=== PATIENT | female | born 1990 | race Caucasian/White ===

== ENCOUNTER 2016-12-15 19:49 | Observation (INO) | payer OTHER ==
[2016-12-15] MEDS ORDERED: Morphine 4 MG/ML VIAL IV STA (20:39)
[2016-12-15] MEDS ORDERED: Sodium Chloride 0.9% 1,000 ML IV STA (20:39)
--- NOTE | 2016-12-15 20:56 | ED PDOC ---
HPI: General Adult Time Seen by Provider: 12/15/16 20:27 Chief Complaint (Nursing): Fever Chief Complaint (Provider): Headache, fever History Per: Patient History/Exam Limitations: no limitations Onset/Duration Of Symptoms: Days (4) Have you had recent travel within the past 21 days to any of the following countries: [place], [place], [place] or [place]?: No Current Symptoms Are (Timing): Still Present Additional History Per: Patient Additional Complaint(s): The patient is a 26yo female, no pertinent past medical history, presents to the ED for evaluation of right sided headache, photophobia, fever, chills, neck stiffness for the past 5 days. Patient also reports associated nausea and vomiting. She reports taking Advil and Tylenol at noon today with no relief. She denies any sore throat, ear pain, cough, abdominal pain, dysuria, hematuria. Patient offers no additional medical complaints. Past Medical History Reviewed: Historical Data, Nursing Documentation, Vital Signs Vital Signs: Last Vital Signs Temp 98.5 F 12/18/16 08:52 Pulse 66 12/18/16 08:52 Resp 20 12/18/16 08:52 BP 117/78 12/18/16 08:52 Pulse Ox 98 12/18/16 08:52 - Medical History PMH: No Chronic Diseases - Surgical History Surgical History: No Surg Hx - Family History Family History: States: No Known Family Hx, Unknown Family Hx - Immunization History Hx Tetanus Toxoid Vaccination: No - Home Medications Home Medications: Ambulatory Orders Medication Instructions Recorded No Known Home Med 12/16/16 - Allergies Allergies/Adverse Reactions: Allergies Allergy/AdvReac Type Severity Reaction Status Date / Time No Known Allergies Allergy Verified 12/15/16 20:08 Review of Systems ROS Statement: Except As Marked, All Systems Reviewed And Found Negative Constitutional: Positive for: Fever, Chills Eyes: Positive for: Vision Change (photophobia) ENT: Negative for: Ear Pain, Throat Pain Respiratory: Negative for: Cough Gastrointestinal: Positive for: Nausea, Vomiting. Negative for: Abdominal Pain Musculoskeletal: Positive for: Neck Pain (neck stiffness) Neurological: Positive for: Headache Physical Exam - Reviewed Nursing Documentation Reviewed: Yes Vital Signs Reviewed: Yes - Physical Exam Appears: Positive for: Uncomfortable (moderate painful distressw) Head Exam: Positive for: ATRAUMATIC, NORMAL INSPECTION, NORMOCEPHALIC Eye Exam: Positive for: Normal appearance, EOMI, PERRL Cardiovascular/Chest: Positive for: Regular Rate, Rhythm Respiratory: Positive for: Normal Breath Sounds. Negative for: Respiratory Distress Gastrointestinal/Abdominal: Positive for: Normal Exam, Soft. Negative for: Tenderness Back: Positive for: Normal Inspection Extremity: Positive for: Normal ROM. Negative for: Deformity, Swelling Neurologic/Psych: Positive for: Alert, Oriented. Negative for: Motor/Sensory Deficits - Laboratory Results Result Diagrams: 12/18/16 06:15 12/18/16 06:15 - ECG O2 Sat by Pulse Oximetry: 98 (RA) Pulse Ox Interpretation: Normal Medical Decision Making Medical Decision Making: Time: 2026 Impression: rule out meningitis Plan: -- Patient consents to a lumbar puncture -- CT Head -- Labs -- IV Rocephin -- IV Vancomycin -- IV Acyclovir -- IV Fluids -- Morphine 2mg IV Reassess Time: 2206 CT Head FINDINGS: Limitations: Streak artifact - mild. Brain: No intracranial hemorrhage. No mass. No definite edema. Ventricles: No hydrocephalus. Bones/joints: No acute fracture. Mild degenerative changes of RIGHT temporomandibular joint. Soft tissues: Unremarkable. Sinuses: Scattered minimal mucosal thickening. Mastoid air cells: No mastoid effusion. Orbits: Unremarkable as visualized. IMPRESSION: 1. No acute intracranial abnormality. 2. Incidental/non-acute findings are described above. Scribe Attestation: Documented by Ghazala Landon acting as a scribe for Inga Menon MD. Provider Attestation: All medical record entries made by the Scribe were at my direction and personally dictated by me. I have reviewed the chart and agree that the record accurately reflects my personal performance of the history, physical exam, medical decision making, and the department course for this patient. I have also personally directed, reviewed, and agree with the discharge instructions and disposition. Procedures - Time-Out Type of Procedure: Lumbar Puncture Correct Patient (with visual ID + MR# on ID Band): Yes Correct Procedure: Yes Correct Site Marked: Yes Medication Reconciliation / Bloodwork / Allergies Checked: Yes Physician Name: Inga Menon MD - Additional Procedures Additional Procedures: lumbar puncture Progress: Performed by the emergency provider Time: 2219 Consent: Informed consent, after discussion of the risks, benefits, and alternatives to the procedure, was obtained Timeout: A timeout to verify the correct patient, procedure, and site was performed immediately prior to the procedure. Indication: Rule out meningitis Patient's position: Sitting. Anesthesia: Local anesthesia: Lidocaine with 1% Epi. See MAR for details. Preparation: Patient was prepped and draped in the usual sterile fashion and sterile technique was used. The landmarks were identified. Needle size: A 22 gauge spinal needle. Lumbar entry space: L4-L5 innerspace level. Fluid appearance: Clear. Post-procedure: Site cleansed and adhesive bandage applied. The patient tolerated the procedure well with no immediate complications. CSF was sent to lab for analysis. Disposition - Clinical Impression Clinical Impression: Fever, Urinary tract infection, Headache - Patient ED Disposition Is Patient to be Admitted: Transfer of Care - Disposition Disposition Time: 00:00 Condition: STABLE Patient Signed Over To: Javier South
[2016-12-15] MEDS ORDERED: cefTRIAXone 2 GM in Sodium Chloride 0.9% 100 ML IVPB STA (20:59)
[2016-12-15 21:20] LABS: BASO # 0.1 K/uL (0.0-0.2); BASO % 0.3 % (0.0-2.0); EOS % 0.2 % (0.0-4.0); HEMOGLOBIN 12.2 g/dL (12.0-16.0); LYMPH # 0.9 K/uL (1.0-4.3); LYMPH % 5.1 % (20.0-40.0); MEAN CELL VOLUME 85.1 fl (81.0-99.0); MEAN CORPUSCULAR HEMOGLOBIN 27.7 pg (27.0-31.0); MEAN CORPUSCULAR HGB CONC 32.5 g/dL (33.0-37.0); MEAN PLATELET VOLUME 7.6 fl (7.2-11.7); MONO # 2.4 K/uL (0.0-0.8); MONO % 13.6 % (0.0-10.0); NEUT % 80.8 % (50.0-75.0); PLATELET COUNT 260 K/uL (130-400); RBC 4.42 Mil/uL (3.80-5.20); RED CELL DISTRIBUTION WIDTH 13.3 % (11.5-14.5); WHITE BLOOD COUNT 17.4 K/uL (4.8-10.8)
[2016-12-15 21:28] LABS: INR 1.8 (0.9-1.2); PROTHROMBIN TIME 20.4 Seconds (9.8-13.1)
[2016-12-15] MEDS ORDERED: cefTRIAXone (Rocephin) 1 gm Inj ONE (21:33)
[2016-12-15] MEDS ORDERED: Vancomycin 1 g Inj ONE (21:34)
[2016-12-15 21:37] LABS: ALB/GLOB RATIO 1.2 (1.0-2.1); ALBUMIN 3.8 g/dL (3.5-5.0); ALT/SGPT 39 U/L (9-52); AST/SGOT 28 U/L (14-36); BLOOD UREA NITROGEN 7 mg/dl (7-17); CALCIUM 8.6 mg/dL (8.4-10.2); GFR AFRICAN-AMERICAN > 60; GFR NON-AFRICAN AMERICAN > 60
[2016-12-15 21:39] LABS: VENOUS BLOOD GAS BASE EXCESS -0.2 mmol/L (0.0-2.0); VENOUS BLOOD GAS PCO2 41 mmHg (40-60); VENOUS BLOOD GAS PO2 20 mm/Hg (30-55); VENOUS BLOOD PH 7.39 (7.32-7.43)
--- NOTE | 2016-12-15 22:06 | CT ---
EXAM: CT Head Without Intravenous Contrast CLINICAL HISTORY: 26 years old, female; Pain and signs and symptoms; Fever and other: Weakness; Headache; Other: Right sided; Additional info: R sided BENITES TECHNIQUE: Axial computed tomography images of the head/brain without intravenous contrast. This CT exam was performed using one or more of the following dose reduction techniques: automated exposure control, adjustment of the mA and/or kV according to patient size, and/or use of iterative reconstruction technique. Coronal and sagittal reformatted images were created and reviewed. COMPARISON: No relevant prior studies available. FINDINGS: Limitations: Streak artifact - mild. Brain: No intracranial hemorrhage. No mass. No definite edema. Ventricles: No hydrocephalus. Bones/joints: No acute fracture. Mild degenerative changes of RIGHT temporomandibular joint. Soft tissues: Unremarkable. Sinuses: Scattered minimal mucosal thickening. Mastoid air cells: No mastoid effusion. Orbits: Unremarkable as visualized. IMPRESSION: 1. No acute intracranial abnormality. 2. Incidental/non-acute findings are described above.
[2016-12-15] MEDS ORDERED: Lidocaine 1% Inj (20ml) ONE (22:09)
[2016-12-15 22:10] LABS: SQUAMOUS EPITHIAL 1 /hpf (0-5); URINE BACTERIA MANY (<OCC); URINE BILIRUBIN NEGATIVE (NEGATIVE); URINE BLOOD MODERATE (NEGATIVE); URINE CLARITY CLEAR (Clear); URINE COLOR STRAW (YELLOW); URINE GLUCOSE (UA) NEG (Normal); URINE LEUKOCYTE ESTERASE MOD Leu/uL (Negative); URINE NITRATE POSITIVE (NEGATIVE); URINE PROTEIN 30 mg/dL (NEGATIVE); URINE UROBILINOGEN 0.2-1.0 mg/dL (0.2-1.0)
[2016-12-15 22:37] LABS: LYMPHOCYTE 6 % (20-50); MONOCYTE 14 % (0-10); NEUTROPHIL 80 % (42-75); PLATELET ESTIMATE NORMAL (NORMAL); TOTAL CELLS COUNTED 100
[2016-12-16 00:26] LABS: CSF APPEARANCE CLEAR/COLORLESS (CLEAR); CSF VOLUME 2 mL (0-1); FLUID TYPE SPINAL FLUID
--- NOTE | 2016-12-16 00:31 | ED PDOC ---
- Laboratory Results Result Diagrams: 12/17/16 04:20 12/17/16 04:20 - ECG O2 Sat by Pulse Oximetry: 99 Medical Decision Making Medical Decision Makin Patient signed out to me from Dr. Menon pending CT, results of spinal tap, and admission. 0100 CT FINDINGS Limitations: Streak artifact - mild. Brain: No intracranial hemorrhage. No mass. No definite edema. Ventricles: No hydrocephalus. Bones/joints: No acute fracture. Mild degenerative changes of RIGHT temporomandibular joint. Soft tissues: Unremarkable. Sinuses: Scattered minimal mucosal thickening. Mastoid air cells: No mastoid effusion. Orbits: Unremarkable as visualized. IMPRESSION: 1. No acute intracranial abnormality. 2. Incidental/non-acute findings are described above. 0246 Lumbar puncture: negative for wbc, clear and colorless Will admit patient because of headache and fever. Spoke to patient, gave preliminary results. noted uti, pt has already gotten Rocephin. Patient will be admitted to medicine - paged Dr. Douglass [phone] Douglass who accepted patient for admission. Scribe Attestation: Documented by Christiane Jones acting as a scribe for Javier South MD. Scribe Attestation: All medical record entries made by the Scribe were at my direction and personally dictated by me. I have reviewed the chart and agree that the record accurately reflects my personal performance of the history, physical exam, medical decision making, and the department course for this patient. I have also personally directed, reviewed, and agree with the discharge instructions and disposition. Disposition Discussed With : Constantine Douglass Doctor Will See Patient In The: Hospital - Clinical Impression Clinical Impression: Fever, Urinary tract infection, Headache - POA Present On Arrival: None - Disposition Disposition: Hospitalized as Observation Patient (OBS MED SURG) Disposition Time: 02:00 Condition: STABLE
[2016-12-16 00:49] LABS: CSF MONO/MACROPHAGE 0 % (0-0)
[2016-12-16] MEDS ORDERED: cefTRIAXone 2 GM in Sodium Chloride 0.9% 100 ML IVPB ONE (09:00)
--- NOTE | 2016-12-16 11:41 | CP.PCM.HP ---
<ManuelianMichael - Last Filed: 12/16/16 12:57> History of Present Illness - History of Present Illness History of Present Illness: 26 y/o female with an unremarkable PMHx presented to [facility] ED for evaluation of severe headache. Pt reports headache started about 4 days ago, started gradually without inciting event and worsening. Pain is 8/10. Headache is associated with fever (Tmax of 103.0 at home), nausea, neck stiffness, photophobia, and several episodes of NBNB emesis. Very mildly alleviated for a short period of time by Tylenol or Advil. 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 Pt also reports going hiking in [facility] in the past week but denies any insect bites. 1st episode of such pain, denies international travel, sick contacts. 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 Meds: none ALL: NKDA PSurghx: [place] teeth extraction OBHx: G0 LMP: November, reg, moderate bleeds VACC: up to date as per pt SocialHx: lives in [place], denies recent unprotected sexual activity, denies Tobacco, ETOH, drug abuse FamilyHx: noncontributory PE: Gen: AAOx3, NAD, mild discomfort when exposed to light, HEENT: EMOI, PERRLA, no cervical adenopathy, no nuchal rigidity, Brudzinski symphyseal/neck signs neg respectively, throat clear CVS: RRR, S1S2+, No MRG, No JVD LUNGS: CTA B/L, A/P, no WRR ABD: Soft, +BS, NT/ND, No organmegaly EXT: Kernig sign neg, pulses 2+ throughout, no edema, FROM NEURO: CN II-XII intact, reflexes normal throughout Case discussed with Dr. Douglass, pt admitted to med/surg Present on Admission - Present on Admission Any Indicators Present on Admission: No Past Patient History - Past Social History Smoking Status: Unknown If Ever Smoked - PSYCHIATRIC Hx Substance Use: No Meds Allergies/Adverse Reactions: Allergies Allergy/AdvReac Type Severity Reaction Status Date / Time No Known Allergies Allergy Verified 12/15/16 20:08 Results - Vital Signs Recent Vital Signs: Last Vital Signs Temp 100.0 F H 12/16/16 09:00 Pulse 80 12/16/16 09:00 Resp 18 12/16/16 09:00 BP 104/65 12/16/16 09:00 Pulse Ox 100 12/16/16 09:00 - Labs Result Diagrams: 12/15/16 21:00 12/15/16 21:00 Assessment & Plan (1) Meningitis Assessment and Plan: likely viral in origin given CSF result f/u viral CSF labs pain management f/u CBC/BMP in AM Neurology consult appreciated Infectious disease consult appreciated Acyclovir IV 600 Q8 Rocephin 2gm QD Vancomycin 1gm QD Status: Acute (2) Urinary tract infection Assessment and Plan: currently on IV abx Status: Acute (3) DVT prophylaxis Assessment and Plan: low risk ambulation SCDs prn Status: Acute <Constantine Douglass - Last Filed: 12/16/16 15:09> Results - Vital Signs Recent Vital Signs: Last Vital Signs Temp 102.9 F H 12/16/16 14:23 Pulse 80 12/16/16 09:00 Resp 18 12/16/16 09:00 BP 104/65 12/16/16 09:00 Pulse Ox 100 12/16/16 09:00 - Labs Result Diagrams: 12/15/16 21:00 12/15/16 21:00 Assessment & Plan - Assessment and Plan (Free Text) Assessment: Patient was personally seen and examined by me in rounds with residents. Available labs and diagnostic data reviewed. Case, Patient's condition and management plan discussed with residents in rounds. Agree with resident's documentation. Plan: As ordered. Constantine Douglass MD
--- NOTE | 2016-12-16 13:55 | CP.PCM.CON ---
History of Present Illness - History of Present Illness History of Present Illness: fever and headache after trip to [place] 26 y/o female with an unremarkable PMHx presented to [facility] ED for evaluation of severe headache. Pt reports headache started about 4 days ago, started gradually without inciting event and worsening. Pain is 8/10. Headache is associated with fever (Tmax of 103.0 at home), nausea, neck stiffness, photophobia, and several episodes of NBNB emesis. Very mildly alleviated for a short period of time by Tylenol or Advil. 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 Pt also reports going hiking in [facility] in the past week but denies any insect bites. 1st episode of such pain, denies international travel, sick contacts. 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 Meds: none ALL: NKDA PSurghx: [place] teeth extraction OBHx: G0 LMP: November,, moderate bleeds VACC: up to date as per pt SocialHx: lives in [place], denies recent unprotected sexual activity, denies Tobacco, ETOH, drug abuse FamilyHx: noncontributory Review of Systems - Review of Systems All systems: reviewed and no additional remarkable complaints except - Constitutional Constitutional: As Per HPI - EENT Eyes: absent: As Per HPI, Blind Spots, Blurred Vision, Change in Vision, Decreased Night Vision, Diplopia, Discharge, Dry Eye, Exophthalmos, Floaters, Irritation, Itchy Eyes, Loss of Peripheral Vision, Pain, Photophobia, Requires Corrective Lenses, Sees Flashes, Spots in Vision, Tunnel Vision, Other Visual Disturbances, Loss of Vision, Other Ears: absent: As Per HPI, Decreased Hearing, Ear Discharge, Ear Pain, Tinnitus, Abnormal Hearing, Disequilibrium, Dizziness, Other Nose/Mouth/Throat: absent: As Per HPI, Epistaxis, Nasal Congestion, Nasal Discharge, Nasal Obstruction, Nasal Trauma, Nose Pain, Post Nasal Drip, Sinus Pain, Sinus Pressure, Bleeding Gums, Change in Voice, Dental Pain, Dry Mouth, Dysphagia, Halitosis, Hoarsness, Lip Swelling, Mouth Lesions, Mouth Pain, Odynophagia, Sore Throat, Throat Swelling, Tongue Swelling, Facial Pain, Neck Pain, Neck Mass, Other - Breasts Breasts: absent: As Per HPI, Change in Shape, Mass, Pain, Nipple Discharge, Nipple Inversion, Skin Changes, Swelling, Other - Cardiovascular Cardiovascular: absent: As Per HPI, Acrocyanosis, Chest Pain, Chest Pain at Rest , Chest Pain with Activity, Claudication, Diaphoresis, Dyspnea, Dyspnea on Exertion, Edema, Irregular Heart Rhythm, Pain Radiating to Arm/Neck/Jaw, Leg Edema, Leg Ulcers, Lightheadedness, Orthopnea, Palpitations, Paroxysmal Nocturnal Dyspnea, Pedal Edema, Radiating Pain, Rapid Heart Rate, Slow Heart Rate, Syncope, Other - Respiratory Respiratory: absent: As Per HPI, Cough, Dyspnea, Hemoptysis, Dyspnea on Exertion , Wheezing, Snoring, Stridor, Pain on Inspiration, Chest Congestion, Excessive Mucous Production, Change in Mucous Color, Pain with Coughing, Other - Gastrointestinal Gastrointestinal: absent: As Per HPI, Abdominal Pain, Belching, Bloating, Change in Bowel Habits, Change in Stool Character, Coffee Ground Emesis, Constipation, Cramping, Diarrhea, Dyspepsia, Dysphagia, Early Satiety, Excessive Flatus, Fecal Incontinence, Heartburn, Hematemesis, Hematochezia, Loose Stools, Melena, Nausea, Odynophagia, Temesmus, Vomiting, Other - Genitourinary Genitourinary: absent: As Per HPI, Change in Urinary Stream, Difficulty Urinating, Dysuria, Flank Pain, Hematuria, Pyuria, Nocturia, Urinary Incontinence, Urinary Frequency, Urinary Hesitance, Urinary Urgency, Voiding Freq/Small Amts, Freq UTI, Hx Renal/Bladder Calculi, Hx /Renal Surgery, Bladder Distension, Other - Reproductive: Female Reproductive:Female: absent: As Per HPI, Amenorrhea, Amenorrhea/ Control, Currently Menstual, Cycle <21 Days, Cycle >35 Days, Cycle Variable, Menses 1-7 Days, Menses >/= 8 Days, Menses Variable, Cycle > 4 Weeks Between, No Menses for 6 Months, Heavy Menses, Light Menses, Normal Menses, Spotting Between Cycles , S/P Hysterectomy, Menopausal, Post Menopausal, Premenarche, Abnormal Vaginal Bleeding, Dysmenorrhea, Dyspareunia, Genital Lesions, Genital Pruritis, Pelvic Pain, Prolapse Symptoms, Sexual Dysfunction, Vaginal Discharge, Vaginal Dryness , Vaginal Odor, Vaginal Pruritis, Other - Menstruation Menstruation: absent: As Per HPI, Amenorrhea, Amenorrhea/ Control, Currently Menstual, Cycle <21 Days, Cycle >35 Days, Cycle Variable, Menses 1-7 Days, Menses >/= 8 Days, Menses Variable, Cycle > 4 Weeks Between, No Menses for 6 Months, Heavy Menses, Light Menses, Normal Menses, Spotting Between Cycles , S/P Hysterectomy, Menopausal, Post Menopausal, Premenarche, Abnormal Vaginal Bleeding, Dysmenorrhea, Other - Musculoskeletal Musculoskeletal: absent: As Per HPI, Abnormal Gait, Arthralgias, Atrophy, Back Pain, Deformity, Joint Swelling, Limited Range of Motion, Loss of Height, Muscle Cramps, Muscle Weakness, Myalgias, Neck Pain, Numbness, Radiating Pain into Limb, Stiffness, Tingling, Other - Integumentary Integumentary: absent: As Per HPI, Acne, Alopecia, Bleeding Lesions, Change in Hair, Change in Nails, Change in Pigmentation, Changing Lesions, Dry Skin, Erythema, Furuncle, Hirsutism, Lesions, New Lesions, Non-Healing Lesions, Photosensitivity, Pruritus, Rash, Skin Pain, Skin Ulcer, Sores, Striae, Swelling , Unusual Bruising, Wounds, Jaundice, Other - Neurological Neurological: As Per HPI - Psychiatric Psychiatric: absent: As Per HPI, Abnormal Sleep Pattern, Anhedonia, Anxiety, Auditory Hallucinations, Behavioral Changes, Change in Appetite, Change in Libido, Confusion, Depression, Difficulty Concentrating, Hallucinations, Homicidal Ideation, Hopelessness, Irritability, Memory Loss, Mood Swings, Panic Attacks, Paranoia, Suicidal Ideation, Visual Hallucinations, Tactile Hallucinations, Other - Endocrine Endocrine: absent: As Per HPI, Change in Body Appearance, Change in Libido, Cold Intolorance, Deepening of Voice, Excessive Sweating, Fatigue, Flushing, Heat Intolorance, Increase in Ring/Shoe/Hat Size, Palpitations, Polydipsia, Polyphagia, Polyuria, Other - Hematologic/Lymphatic Hematologic: absent: As Per HPI, Easy Bleeding, Easy Bruising, Lymphadenopathy, Other Past Patient History - Past Social History Smoking Status: Unknown If Ever Smoked - PSYCHIATRIC Hx Substance Use: No Meds Allergies/Adverse Reactions: Allergies Allergy/AdvReac Type Severity Reaction Status Date / Time No Known Allergies Allergy Verified 12/15/16 20:08 - Medications Medications: Current Medications Acetaminophen (Tylenol 325mg Tab) 650 mg PO Q6 PRN PRN Reason: Pain, Mild (1-3) Acetaminophen (Tylenol 325mg Tab) 650 mg PO Q6 PRN PRN Reason: Fever >100.4 F Famotidine (Pepcid) 20 mg PO BID [facility] Ceftriaxone Sodium 2 gm/ (Sodium Chloride) 100 mls @ 100 mls/hr IVPB DAILY [facility] Acyclovir 600 mg/ Sodium (Chloride) 100 mls @ 100 mls/hr IVPB Q8 [facility] Vancomycin HCl 1 gm/ Sodium (Chloride) 250 mls @ 166.667 mls/hr IVPB DAILY [facility] Ketorolac Tromethamine (Toradol) 30 mg IVP Q6 PRN PRN Reason: Pain, severe (8-10) Ondansetron HCl (Zofran Inj) 4 mg IVP Q6 PRN PRN Reason: Nausea/Vomiting Physical Exam - Constitutional Appears: Toxic - Head Exam Head Exam: NORMOCEPHALIC - Eye Exam Eye Exam: PERRL - ENT Exam ENT Exam: Mucous Membranes Dry, Normal External Ear Exam - Neck Exam Neck exam: Negative for: Lymphadenopathy - Respiratory Exam Respiratory Exam: Clear to Auscultation Bilateral - Cardiovascular Exam Cardiovascular Exam: REGULAR RHYTHM - GI/Abdominal Exam GI & Abdominal Exam: Diminished Bowel Sounds, Soft. absent: Tenderness - Rectal Exam Rectal Exam: Deferred - Exam Exam: NORMAL INSPECTION - Extremities Exam Extremities exam: Negative for: pedal edema - Back Exam Back exam: absent: CVA tenderness (L), CVA tenderness (R) - Neurological Exam Neurological exam: Alert, CN II-XII Intact, Oriented x3, Reflexes Normal - Psychiatric Exam Psychiatric exam: Normal Mood Results - Vital Signs Recent Vital Signs: Last Vital Signs Temp 100.0 F H 12/16/16 09:00 Pulse 80 12/16/16 09:00 Resp 18 12/16/16 09:00 BP 104/65 12/16/16 09:00 Pulse Ox 100 12/16/16 09:00 - Labs Result Diagrams: 12/15/16 21:00 12/15/16 21:00 Assessment & Plan (1) Meningitis Status: Acute - Assessment and Plan (Free Text) Assessment: R/O VIRAL, RICKETTSIAL, BACTERIAL
[2016-12-16] MEDS: Sodium Chloride 0.9% 1,000 ML IV SCH (17:00)
[2016-12-16] MEDS ORDERED: cefTRIAXone (Rocephin) 1 gm Inj IVPB ONE (23:00)
[2016-12-17 05:27] LABS: BLOOD UREA NITROGEN 8 mg/dl (7-17); CALCIUM 7.8 mg/dL (8.4-10.2); GFR AFRICAN-AMERICAN > 60; GFR NON-AFRICAN AMERICAN > 60
[2016-12-17 05:32] LABS: HEMOGLOBIN 10.9 g/dL (12.0-16.0); MEAN CELL VOLUME 85.5 fl (81.0-99.0); MEAN CORPUSCULAR HEMOGLOBIN 27.9 pg (27.0-31.0); MEAN CORPUSCULAR HGB CONC 32.6 g/dL (33.0-37.0); RBC 3.92 Mil/uL (3.80-5.20); RED CELL DISTRIBUTION WIDTH 13.4 % (11.5-14.5); WHITE BLOOD COUNT 10.4 K/uL (4.8-10.8)
--- NOTE | 2016-12-17 05:34 | CON ---
NEUROLOGY CONSULTATION DATE OF EVALUATION: 12/16/2016 REASON FOR CONSULTATION: Headache. CHIEF COMPLAINT: The patient was brought into [facility] with history of four days of headache with fever, which has been worsening in nature. The headache is also associating with nausea, neck stiffness, and photophobia. In the emergency room, the patient did have spinal tap and antibiotic was started prophylactically for possible meningitis. The patient denies any recent travel except hiking in the [facility]. No history of insect bite. No history of skin rash. No history of joint pain. No history of fever or flu. No history of recent vaccination. No history of recent blood transfusion. 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 PAST MEDICAL HISTORY: Unremarkable. PERSONAL HISTORY: Denies smoking, alcohol use. ALLERGIES: NO KNOWN DRUG ALLERGIES. REVIEW OF SYSTEM: As per H and P. MEDICATION: IV fluids, ceftriaxone, acyclovir, Pepcid, Toradol, Tylenol p.r.n., vancomycin, and Zofran. PHYSICAL EXAMINATION: VITAL SIGNS: Blood pressure 96/61, mean arterial pressure of 72, respiratory rate is 18, and temperature afebrile, 97.9, pulse rate 57, regular. NECK: Supple. No carotid bruits. HEART: Sounds are regular. CHEST: Fair air entry. EXTREMITIES: No edema of legs. NEUROLOGIC: Mental Status Examination: She is awake, alert, and oriented to person, place, and time. Speech is clear. Naming, repetition, fluency, and comprehension all within normal. CRANIAL NERVE: Visual field intact. Pupils react, reactive to light. Extraocular movement normal. No nystagmus. No facial sensory deficit. No facial asymmetry. Hearing is normal. Tongue is midline. Good gag. MOTOR: Outstretched hand with eyes closed. No drift is noted. Power is symmetric on either side. Deep tendon reflexes; biceps, brachioradialis, triceps are 2+, both knees are 2+, both ankles are trace. Plantars are downgoing. SENSORY: Grossly intact. No cortical sensory loss. COORDINATION: [id number] test is intact. Gait is deferred at this time. CONCLUSION: Upon reviewing of her history and neurological examination, Ms. Marycarmen Suarez has been presenting with headache with fever and meningismus sign consistent with possible rare meningitis. The current examination does not show any long tract sign at present. The current headache may be superimposed with post spinal procedure. Workup; CT of the head reviewed by me, no acute pathology is noted. Blood workup; WBC is 17.4, hemoglobin 12.2, hematocrit 37.6, platelets 260. PT 20.4, INR 1.8, PTT 33. Sodium 132, potassium 4.0, chloride 196, bicarbonate 7, GFR 60, random glucose 110. Liver functions are normal. Urinalysis with nitrate positive. RBCs 5+ microscopic, WBC is many. CSF; colorless, WBC 0. Glucose 64, protein 22. RECOMMENDATION: 1. Continue hydration. 2. The patient can be benefited with pain medication as she has been taking for her headache. 3. Blood workup as per the order, which was requested to rule out possible vasculitis. 4. Continue antibiotic as per ID. 5. The patient should have MRI of the brain to rule out intracranial pathology as well. Dale Choi MD
[2016-12-17] MEDS: cefTRIAXone 2 GM in Sodium Chloride 0.9% 100 ML IVPB SCH (08:24)
[2016-12-17] MEDS: Sodium Chloride 0.9% 1,000 ML IV SCH ×2 (08:26→16:53)
--- NOTE | 2016-12-17 08:31 | CP.PCM.PN ---
<Michael Malik - Last Filed: 12/17/16 14:11> Subjective - Date & Time of Evaluation Date of Evaluation: 12/17/16 Time of Evaluation: 08:30 - Subjective Subjective: pt seen and examined at bedside this morning with attending. No acute events overnight. Afebrile for >12 hrs now. No new complaints. Pt lying in bed comfortably, NAD. Pt reports overall improvement in symptoms. Denies photophobia today. Reports improvement in headache but still complains of pain that is controlled with medications. No other complaints. Denies chills, changes in vision, CP/SOB/palpitations, N/V/D/C, urinary symptoms, numbness/ tingling. Objective - Vital Signs/Intake and Output Vital Signs (last 24 hours): Temp Pulse Resp BP Pulse Ox 98.4 F 72 20 92/62 L 100 12/17/16 00:37 12/17/16 00:37 12/17/16 00:37 12/17/16 00:37 12/17/16 00:37 - Medications Medications: Current Medications Acetaminophen (Tylenol 325mg Tab) 650 mg PO Q6 PRN PRN Reason: Pain, Mild (1-3) Last Admin: 12/17/16 08:20 Dose: 650 mg Acetaminophen (Tylenol 325mg Tab) 650 mg PO Q6 PRN PRN Reason: Fever >100.4 F Last Admin: 12/16/16 14:23 Dose: 650 mg Famotidine (Pepcid) 20 mg PO BID [facility] Last Admin: 12/17/16 08:20 Dose: 20 mg Ceftriaxone Sodium 2 gm/ (Sodium Chloride) 100 mls @ 100 mls/hr IVPB DAILY [facility] Last Admin: 12/17/16 08:24 Dose: 100 mls/hr Acyclovir 600 mg/ Sodium (Chloride) 100 mls @ 100 mls/hr IVPB Q8 [facility] Last Admin: 12/17/16 08:20 Dose: 100 mls/hr Vancomycin HCl 1 gm/ Sodium (Chloride) 250 mls @ 166.667 mls/hr IVPB DAILY [facility] Last Admin: 12/17/16 08:25 Dose: 166.667 mls/hr Sodium Chloride (Sodium Chloride 0.9%) 1,000 mls @ 100 mls/hr IV .Q10H [facility] Stop: 12/17/16 16:49 Last Admin: 12/17/16 08:26 Dose: 100 mls/hr Ketorolac Tromethamine (Toradol) 30 mg IVP Q6 PRN PRN Reason: Pain, severe (8-10) Last Admin: 12/16/16 14:15 Dose: 30 mg Ondansetron HCl (Zofran Inj) 4 mg IVP Q6 PRN PRN Reason: Nausea/Vomiting - Labs Labs: 12/17/16 04:20 12/17/16 04:20 PT 20.4 Seconds (9.8-13.1) H 12/15/16 21:00 INR 1.8 (0.9-1.2) H 12/15/16 21:00 APTT 33.0 Seconds (25.6-37.1) 12/15/16 21:00 - Constitutional Appears: Non-toxic, No Acute Distress - Eye Exam Eye Exam: EOMI. absent: Conjunctival injection, Scleral icterus Pupil Exam: PERRL - ENT Exam ENT Exam: Mucous Membranes Moist - Neck Exam Neck Exam: Full ROM. absent: Lymphadenopathy, Meningismus - Respiratory Exam Respiratory Exam: Clear to Ausculation Bilateral, NORMAL BREATHING PATTERN. absent: Rales, Rhonchi, Wheezes - Cardiovascular Exam Cardiovascular Exam: REGULAR RHYTHM, RRR, +S1, +S2. absent: Tachycardia, JVD, Rubs, Murmur - GI/Abdominal Exam GI & Abdominal Exam: Soft, Normal Bowel Sounds. absent: Tenderness - Back Exam Back Exam: NORMAL INSPECTION. absent: CVA tenderness (L), CVA tenderness (R) - Neurological Exam Neurological Exam: Alert, Awake, CN II-XII Intact, Oriented x3 - Psychiatric Exam Psychiatric exam: Normal Affect, Normal Mood - Skin Skin Exam: Dry, Intact, Normal Color Assessment and Plan (1) Meningitis Assessment & Plan: CSF culture negative thus far will f/u labs ordered for possible etiology will continue IV Abx and acyclovir f/u Brain MRI f/u Neuro and ID recommendations Status: Acute (2) Urinary tract infection Assessment & Plan: asymptomatic will continue with current abx Status: Acute (3) DVT prophylaxis Assessment & Plan: c/w current management Status: Acute <Douglass,Constantine K - Last Filed: 12/19/16 10:32> Objective - Vital Signs/Intake and Output Vital Signs (last 24 hours): Temp Pulse Resp BP Pulse Ox 97.7 F 54 L 18 114/78 100 12/18/16 16:30 12/18/16 16:30 12/18/16 16:30 12/18/16 16:30 12/18/16 16:30 - Labs Labs: 12/18/16 06:15 12/18/16 06:15 PT 20.4 Seconds (9.8-13.1) H 12/15/16 21:00 INR 1.8 (0.9-1.2) H 12/15/16 21:00 APTT 33.0 Seconds (25.6-37.1) 12/15/16 21:00 Assessment and Plan - Assessment and Plan (Free Text) Assessment: Patient was personally seen and examined by me in rounds with residents. Available labs and diagnostic data reviewed. Case, Patient's condition and management plan discussed with residents in rounds. Agree with resident's documentation. Plan: As ordered. Constantine Douglass MD
[2016-12-17] MEDS ORDERED: Gadodiamide 287 MG/ML VIAL (15ML) IV ONE (13:12)
--- NOTE | 2016-12-17 16:52 | MRI ---
PROCEDURE: MRI BRAIN WITH AND WITHOUT CONTRAST HISTORY: intraparenchymal lesion and meningeal enhancement COMPARISON: Noncontrast head CT from 12/15/2016 TECHNIQUE: Multiplanar, multisequence MR images of the brain were obtained with and without intravenous contrast enhancement. 13 cc Omniscan was injected intravenously. FINDINGS: HEMORRHAGE: None DWI: No evidence of an acute or early subacute infarction. BRAIN PARENCHYMA: Erwin-white matter differentiation is preserved. There is no mass, mass effect or abnormal extra-axial fluid collection. There is no territorial infarction. ENHANCEMENT: No abnormal parenchymal or leptomeningeal enhancement. VENTRICLES: The ventricles are normal in size, shape and configuration. CRANIUM: There is normal bone marrow signal pattern. ORBITS: Grossly unremarkable. PARANASAL SINUSES/MASTOIDS: Predominantly clear. VASCULAR SYSTEM: There are normal signal voids in the larger intracranial arteries. OTHER FINDINGS: None . IMPRESSION: No acute intracranial abnormality. Essentially normal MRI of the brain without and with intravenous contrast.
[2016-12-18 07:07] LABS: BASO % 0.3 % (0.0-2.0); EOS % 0.2 % (0.0-4.0); HEMOGLOBIN 10.9 g/dL (12.0-16.0); LYMPH # 2.1 K/uL (1.0-4.3); LYMPH % 19.7 % (20.0-40.0); MEAN CELL VOLUME 85.1 fl (81.0-99.0); MEAN CORPUSCULAR HEMOGLOBIN 28.1 pg (27.0-31.0); MEAN CORPUSCULAR HGB CONC 33.1 g/dL (33.0-37.0); MEAN PLATELET VOLUME 7.6 fl (7.2-11.7); MONO # 1.1 K/uL (0.0-0.8); MONO % 10.2 % (0.0-10.0); NEUT # 7.3 K/uL (1.8-7.0); NEUT % 69.6 % (50.0-75.0); RBC 3.86 Mil/uL (3.80-5.20); RED CELL DISTRIBUTION WIDTH 13.3 % (11.5-14.5); WHITE BLOOD COUNT 10.5 K/uL (4.8-10.8)
[2016-12-18 07:10] LABS: ALBUMIN 3.1 g/dL (3.5-5.0); ALT/SGPT 29 U/L (9-52); AST/SGOT 18 U/L (14-36); BLOOD UREA NITROGEN 6 mg/dl (7-17); CALCIUM 8.1 mg/dL (8.4-10.2); GFR AFRICAN-AMERICAN > 60; GFR NON-AFRICAN AMERICAN > 60
[2016-12-18] MEDS: cefTRIAXone 2 GM in Sodium Chloride 0.9% 100 ML IVPB SCH (12:56)
[2016-12-18 12:58] LABS: HSV 1 DNA Not Detected (Not Detected); HSV 2 DNA Not Detected (Not Detected); SPECIMEN SOURCE CSF
--- NOTE | 2016-12-18 14:19 | CP.PCM.PN ---
Subjective - Date & Time of Evaluation Date of Evaluation: 12/18/16 Time of Evaluation: 10:00 - Subjective Subjective: improving still with headache csf unremarkable cultures negative awake alert no nucal rigidity Objective - Vital Signs/Intake and Output Vital Signs (last 24 hours): Temp Pulse Resp BP Pulse Ox 98.5 F 66 20 117/78 98 12/18/16 08:52 12/18/16 08:52 12/18/16 08:52 12/18/16 08:52 12/18/16 09:28 - Medications Medications: Current Medications Acetaminophen (Tylenol 325mg Tab) 650 mg PO Q6 PRN PRN Reason: Pain, Mild (1-3) Last Admin: 12/18/16 14:02 Dose: 650 mg Acetaminophen (Tylenol 325mg Tab) 650 mg PO Q6 PRN PRN Reason: Fever >100.4 F Last Admin: 12/16/16 14:23 Dose: 650 mg Doxycycline Hyclate (Doryx) 100 mg PO Q12 [facility] Famotidine (Pepcid) 20 mg PO BID [facility] Last Admin: 12/18/16 08:17 Dose: 20 mg Ceftriaxone Sodium 2 gm/ (Sodium Chloride) 100 mls @ 100 mls/hr IVPB DAILY [facility] Last Admin: 12/18/16 12:56 Dose: 100 mls/hr Ketorolac Tromethamine (Toradol) 30 mg IVP Q6 PRN PRN Reason: Pain, severe (8-10) Last Admin: 12/17/16 14:04 Dose: 30 mg Ondansetron HCl (Zofran Inj) 4 mg IVP Q6 PRN PRN Reason: Nausea/Vomiting - Labs Labs: 12/18/16 06:15 12/18/16 06:15 PT 20.4 Seconds (9.8-13.1) H 12/15/16 21:00 INR 1.8 (0.9-1.2) H 12/15/16 21:00 APTT 33.0 Seconds (25.6-37.1) 12/15/16 21:00 - Constitutional Appears: Non-toxic, No Acute Distress - Head Exam Head Exam: NORMOCEPHALIC - Eye Exam Eye Exam: EOMI, PERRL - ENT Exam ENT Exam: Mucous Membranes Dry, Normal External Ear Exam - Neck Exam Neck Exam: absent: Lymphadenopathy - Respiratory Exam Respiratory Exam: Clear to Ausculation Bilateral - Cardiovascular Exam Cardiovascular Exam: REGULAR RHYTHM - GI/Abdominal Exam GI & Abdominal Exam: Distended, Soft - Rectal Exam Rectal Exam: Deferred - Exam Exam: NORMAL INSPECTION - Extremities Exam Extremities Exam: absent: Pedal Edema - Back Exam Back Exam: absent: CVA tenderness (L), CVA tenderness (R) - Neurological Exam Neurological Exam: Alert, Awake, Oriented x3 - Psychiatric Exam Psychiatric exam: Normal Mood - Skin Skin Exam: Dry, Intact Assessment and Plan (1) Meningitis Status: Acute - Assessment and Plan (Free Text) Assessment: fever and headache with normal csf will need convalescent serologies and neurology follow up HSV PCR neg will d/c acyclovir Rickettsaia panel pending Doxy added
[2016-12-18 16:30] VITALS: BP 114/78; PULSE 54; RESP 18; TEMP 97.7; O2SAT 100
== END 2016-12-18 18:52 | disposition home or self-care (01) ==
LOC: H.ER 19:49 → H.ERHOLD 12-16 03:05 → INTOOBSV 12-16 03:05 → UNDOADMOB 12-16 03:05 → H.MEDSURG1 12-16 11:24 → H.ERHOLD 12-16 15:03 → H.MEDSURG1 12-16 15:03
PROVIDERS: ADMIT Internal Medicine; ATTEND Internal Medicine
DX: G03.9 Meningitis, unspecified (principal); N39.0 Urinary tract infection, site not specified; J45.909 Unspecified asthma, uncomplicated